=== PATIENT | male | born 1990 | race Caucasian/White ===

== ENCOUNTER 2018-03-10 15:02 | Observation (INO) | payer OTHER ==
[2018-03-10 18:33] LABS: ABS Basophils 0 10^3/ul (0-0.2); ABS Eosinophils 0.1 10^3/ul (0-0.6); ABS Lymphocytes 1.7 10^3/ul (1.0-4.8); ABS Monocytes 0.9 10^3/ul (0-0.8); ABS Neutrophils 5.4 10^3/ul (1.5-7.7); ABS Nucleated RBC 0 10^3/ul; Eosinophil % 0.7 % (0-6); Hematocrit 41 % (42-52); Hemoglobin 14.1 g/dl (14.0-18.0); Mean Corpuscular HGB Conc 35 g/dl (31-36); Mean Corpuscular Hemoglobin 30 pg (27-31); Mean Corpuscular Volume 87 fL (80-94); Mean Platelet Volume 7.7 um3 (7.4-10.4); Nucleated Red Blood Cells % 0.1; Platelet Count 275 10^3/ul (150-450); Red Blood Count 4.66 10^6/ul (4.0-5.4); Red Cell Distribution Width 13 % (10.5-15)
[2018-03-10 18:49] LABS: EGFR Non-African American 92.1 (>60)
--- NOTE | 2018-03-10 20:49 | ED ---
Lower Extremity - HPI Summary HPI Summary: Complains of left ankle pain swelling 4 days, with redness and pain 2 days. Denies trauma or insect bite, fever, N/V, history of joint pain, any other symptoms. Medical history is none. - History of Current Complaint Chief Complaint: EDSoftTissueLowExtr Stated Complaint: SWOLLEN LT ANKLE X 4 DAYS Time Seen by Provider: 03/10/18 17:33 Hx Obtained From: Patient Pain Intensity: 7 - Allergies/Home Medications Allergies/Adverse Reactions: Allergies Allergy/AdvReac Type Severity Reaction Status Date / Time No Known Allergies Allergy Verified 03/10/18 15:09 Home Medications: Home Medications NK [No Home Medications Reported] 03/10/18 [History Confirmed 03/10/18] PMH/Surg Hx/FS Hx/Imm Hx Infectious Disease History: No Infectious Disease History: Denies: Traveled Outside the [place] in Last 30 Days - Social History Alcohol Use: Occasionally Substance Use Type: Reports: None Smoking Status (MU): Never Smoked Tobacco Review of Systems Constitutional: Negative Eyes: Negative ENT: Negative Cardiovascular: Negative Respiratory: Negative Gastrointestinal: Negative Genitourinary: Negative Positive: Arthralgia Positive: Other Neurological: Negative Psychological: Normal All Other Systems Reviewed And Are Negative: Yes Physical Exam - Summary Physical Exam Summary: Full range of motion with dorsiflexion and plantar flexion of left ankle without indication of pain. Redness and swelling over medial malleolus of left ankle spreading into medial left foot and up medial left lower extremity. Tenderness to palpation right over medial malleolus. Triage Information Reviewed: Yes Vital Signs On Initial Exam: Initial Vitals Temp Pulse Resp BP Pulse Ox 99.1 F 80 16 144/90 98 03/10/18 15:10 03/10/18 15:10 03/10/18 15:10 03/10/18 15:10 03/10/18 15:10 Vital Signs Reviewed: Yes Appearance: Positive: Well-Appearing Skin: Positive: Warm Head/Face: Positive: Normal Head/Face Inspection Eyes: Positive: Normal ENT: Positive: Normal ENT inspection Respiratory/Lung Sounds: Positive: Clear to Auscultation Cardiovascular: Positive: Normal Abdomen Description: Positive: Nontender Musculoskeletal: Positive: Normal Neurological: Positive: Normal Psychiatric: Positive: Normal AVPU Assessment: Alert - [place] Coma Scale Best Eye Response: 4 - Spontaneous Best Motor Response: 6 - Obeys Commands Best Verbal Response: 5 - Oriented Coma Scale Total: 15 Diagnostics - Vital Signs Vital Signs Temp Pulse Resp BP Pulse Ox 03/10/18 15:10 99.1 F 80 16 144/90 98 - Laboratory Lab Results: Lab Results 03/10/18 03/10/18 03/10/18 Range/Units 18:24 18:24 18:24 WBC 8.0 (3.5-10.8) 10^3/ul RBC 4.66 (4.0-5.4) 10^6/ul Hgb 14.1 (14.0-18.0) g/dl Hct 41 L (42-52) % MCV 87 (80-94) fL MCH 30 (27-31) pg MCHC 35 (31-36) g/dl RDW 13 (10.5-15) % Plt Count 275 (150-450) 10^3/ul MPV 7.7 (7.4-10.4) um3 Neut % (Auto) 66.9 (38-83) % Lymph % (Auto) 21.0 L (25-47) % [place] % (Auto) 11.0 H (0-7) % Eos % (Auto) 0.7 (0-6) % Baso % (Auto) 0.4 (0-2) % Absolute Neuts (auto) 5.4 (1.5-7.7) 10^3/ul Absolute Lymphs (auto) 1.7 (1.0-4.8) 10^3/ul Absolute Monos (auto) 0.9 H (0-0.8) 10^3/ul Absolute Eos (auto) 0.1 (0-0.6) 10^3/ul Absolute Basos (auto) 0 (0-0.2) 10^3/ul Absolute Nucleated RBC 0 10^3/ul Nucleated RBC % 0.1 ESR 40 H (0-14) mm/Hr Sodium 139 (139-145) mmol/L Potassium 3.9 (3.5-5.0) mmol/L Chloride 101 (101-111) mmol/L Carbon Dioxide 28 (22-32) mmol/L Anion Gap 10 (2-11) mmol/L BUN 8 (6-24) mg/dL Creatinine 0.99 (0.67-1.17) mg/dL Est GFR ( Amer) 118.5 (>60) Est GFR (Non-Af Amer) 92.1 (>60) BUN/Creatinine Ratio 8.1 (8-20) Glucose 94 (70-100) mg/dL Lactic Acid 0.7 (0.5-2.0) mmol/L Calcium 9.4 (8.6-10.3) mg/dL Total Bilirubin 0.60 (0.2-1.0) mg/dL AST 20 (13-39) U/L ALT 15 (7-52) U/L Alkaline Phosphatase 76 (34-104) U/L C-Reactive Protein 71.50 H (< 5.00) mg/L Total Protein 7.8 (6.4-8.9) g/dL Albumin 4.6 (3.2-5.2) g/dL Globulin 3.2 (2-4) g/dL Albumin/Globulin Ratio 1.4 (1-3) Result Diagrams: 03/10/18 18:24 03/10/18 18:24 Lab Statement: Any lab studies that have been ordered have been reviewed, and results considered in the medical decision making process. Lower Extremity Course/Dx - Course Course Of Treatment: Cellulitis versus septic joint over the left medial malleolus. Denies trauma. Discussed patient with Dr. Montaño. We'll admit - Diagnoses Provider Diagnoses: Left ankle pain, Cellulitis - Physician Notifications Discussed Care Of Patient With: David Montaño Time Discussed With Above Provider: 20:54 Discharge - Sign-Out/Discharge Documenting (check all that apply): Discharge/Admit/Transfer - Discharge Plan Condition: Stable Disposition: ADMITTED TO [facility] Referrals: No Primary Care Phys,NOPCP [Primary Care Provider] - - Billing Disposition and Condition Condition: STABLE Disposition: [facility] [place]
[2018-03-10] MEDS ORDERED: ceFAZolin 1 GM in Dextrose (*) 1 GM/50 ML BAG IVPB STA (21:30)
[2018-03-10] MEDS ORDERED: Naproxen TAB* 250 MG PO PRN (21:30)
[2018-03-10] MEDS ORDERED: traMADol TAB* 50 MG PO PRN (21:30)
[2018-03-10] MEDS ORDERED: NS 0.9% 1000 ML* 1,000 ML IV SCH (21:30)
[2018-03-10] MEDS ORDERED: ceFAZolin 1 GM VIAL(*) 1 GM in NS 0.9% 50 ML* 50 ML IVPB SCH (22:00)
--- NOTE | 2018-03-10 22:10 | RAD ---
INDICATION: Left ankle pain and swelling x4 days COMPARISON: None. TECHNIQUE: 3 views of the left ankle were obtained. FINDINGS: There is soft tissue swelling overlying the fibular malleolus. The well corticated bones exhibit normal alignment. Joint spaces appear maintained. No fracture is seen. IMPRESSION: SOFT TISSUE SWELLING OVERLYING THE FIBULAR MALLEOLUS AND LATERAL LEFT HINDFOOT WITHOUT UNDERLYING FRACTURE OR DISLOCATION IDENTIFIED. If the patient's symptoms persist, follow-up imaging is recommended.
--- NOTE | 2018-03-10 23:35 | HP ---
ADMISSION HISTORY AND PHYSICAL: DATE OF ADMISSION: 03/10/18 PRIMARY CARE PROVIDER: None. HEALTHCARE PROXY: His parents. CODE STATUS: Full. SOURCE OF INFORMATION: History obtained from interview with the patient and ED provider. RELIABILITY: Excellent. CHIEF COMPLAINT: Painful left ankle. 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 He has been here approximately 2 weeks but noticed over the last 4 days, he has had increasing swelling in his left ankle, which has become extremely painful over the last 2 days. He started taking 2 tabs of Advil approximately every 4 to 6 hours for the last 2 days. He notes the pain is worse with standing and feels like the blood is pumping in his foot. He notes no known trauma. There has been no skin breakdown. No bug bites to his ankle. He has been working in shifts with his team and is only sleeping every other day; therefore he has taken no excursions to the outdoors or hikes. He has noted headaches and general aches predominantly in his hands and his right knee that seem to improve with sleep. He denies fevers, chills, sweating, chest pain, shortness of breath, or cough. Denies any dental work. Because of the increasing swelling and erythema over his left ankle associated with progressive and worsening pain, he presented to the emergency room for evaluation. PAST MEDICAL HISTORY: The patient believes he has been diagnosed with hypertension though never needed medications. MEDICATIONS: No medications. ALLERGIES: No known drug allergies. FAMILY HISTORY: No diabetes or hypertension. SOCIAL HISTORY: No tobacco. Has approximately 3 alcoholic drinks per week. Chews tobacco one time per week. He is a grad student from [employer] currently is in exchange at [employer] [facility] for 2 weeks. REVIEW OF SYSTEMS: As per HPI, otherwise all other systems negative. PHYSICAL EXAMINATION GENERAL: He is sitting in bed, interactive, pleasant, in no apparent distress. VITAL SIGNS: In the emergency room, blood pressure 144/90, pulse rate is 80, respiratory rate is 16, he is 98% on room air, his temperature is 99.1. LUNGS: Clear to auscultation. HEART: He has a regular rate and rhythm. No murmurs, rubs, or gallops. EXTREMITIES: Warm and well perfused without clubbing, cyanosis, or edema. SKIN: Notable for deep maroon erythema over his left medial malleolus extending out with less maroon but still quite red erythema over the dorsal aspect of his foot and streaking up his medial aspect of his lower extremity. There is swelling over the dorsal aspect of his foot and the medial malleolus. It is tender to palpation most notably over his medial malleolus. LABORATORY DATA: Reviewed notable for white blood cell count of 8, hemoglobin 14. His ESR is 40 and CRP of 71. DATA: No imaging obtained at this point. ASSESSMENT AND PLAN: This 27-year-old man with no other significant past medical history presenting with 4 days of increased swelling and pain over his left medial malleolus, concern for cellulitis and potentially osteomyelitis. 1. Cellulitis. He is certainly cellulitic. We will start on cefazolin 1 g every 8 hours, 150 cc of normal saline for 1 L; treat pain with acetaminophen and naproxen with tramadol as needed. First obtain an x-ray of the affected area, although its negative predictive value for osteomyelitis is low. If the patient has rapid improvement, may opt to not pursue additional imaging; however , high index of suspicion for underlying osteo as the predominant area of inflammation is right over his medial malleolus, and there is not much soft tissue the infection and the underlying bony structures. Of note, the patient has a flight on Monday, which I informed him he may have to cancel. He is able and willing to do so. 2. Hypertension, diet controlled, on no medications currently. 3. DVT prophylaxis: Low risk. Ambulate ad chito. [id number]/[facility] #: [id number] [facility]
[2018-03-10] MEDS: Acetaminophen TAB* 325 MG PO PRN (23:36)
[2018-03-11] MEDS: ceFAZolin 1 GM in Dextrose (*) 1 GM/50 ML BAG IVPB SCH ×2 (05:43→13:42)
[2018-03-11 08:16] LABS: ABS Basophils 0 10^3/ul (0-0.2); ABS Eosinophils 0.1 10^3/ul (0-0.6); ABS Lymphocytes 1.6 10^3/ul (1.0-4.8); ABS Monocytes 0.9 10^3/ul (0-0.8); ABS Neutrophils 3.6 10^3/ul (1.5-7.7); ABS Nucleated RBC 0 10^3/ul; Eosinophil % 1.3 % (0-6); Hematocrit 38 % (42-52); Hemoglobin 13.2 g/dl (14.0-18.0); Lymphocyte % 26.2 % (25-47); Mean Corpuscular HGB Conc 35 g/dl (31-36); Mean Corpuscular Hemoglobin 30 pg (27-31); Mean Corpuscular Volume 87 fL (80-94); Mean Platelet Volume 7.9 um3 (7.4-10.4); Nucleated Red Blood Cells % 0; Platelet Count 270 10^3/ul (150-450); Red Blood Count 4.39 10^6/ul (4.0-5.4); Red Cell Distribution Width 12 % (10.5-15); White Blood Count 6.3 10^3/ul (3.5-10.8)
[2018-03-11] MEDS: Acetaminophen TAB* 325 MG PO PRN (09:45)
--- NOTE | 2018-03-11 12:03 | DS ---
DISCHARGE SUMMARY: DATE OF ADMISSION: 03/10/18. DATE OF DISCHARGE: 03/11/18. PRIMARY CARE PROVIDER: Patient does not have a primary care physician. PRINCIPAL DIAGNOSIS: Left ankle cellulitis. NEW MEDICATION ON DISCHARGE: Keflex 500 mg q.i.d. for 7 days. 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 He noted over the past 4 to 5 days, increasing swelling and redness of his left ankle with pain. The patient states he denies any bug bites or trauma or breakdown of the skin. He denies any trauma to the area either. He had no nausea, no vomiting. Denied any fevers at home. He has been afebrile in the hospital. T-max was 99.1. He was seen in the emergency room and was referred to the hospitalist service for further evaluation. He was admitted on IV cefazolin, IV fluids, and ibuprofen. The patient states he had a good night's sleep. He states that there is minimal improvement in the redness of his right ankle. He is ambulating without issue, tolerating a diet. He is able to move his ankle joint without significant issues. I spoke with him that I think without any other comorbidities or risk factors, as he has no white count and no fever that the extent of the cellulitis can be managed by oral antibiotics on a continuous 7-day course of Keflex. I also discussed the importance of keeping his leg elevated while he is still in the laboratory. Patient is agreeable to this discharge instruction. He understands the instruction. He is going to get another dose of IV antibiotics this afternoon and will be discharged after that. Also, of note, on admission, the patient had an ankle x- ray done that showed soft tissue swelling overlying the fibula, malleolus, and lateral left hindfoot without underlying fracture or dislocation identified. His blood work showed no elevated white count. His CRP is elevated which is not unusual in the setting of his cellulitis. I discussed with the patient the importance of returning to the emergency room if his redness gets worse, swelling, pain or difficulty moving his ankle joint that he should return to the emergency room also in the setting of a fever. He is aware of these instructions and to continue full dose of antibiotics and keep the leg elevated. Patient is being discharged to home. 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 ACTIVITY: As tolerated. DIET: Regular. TIME SPENT: Greater than 30 minutes spent doing the discharge summary, more than half the time spent in direct patient contact. [id number]/[facility] #: [id number] [facility]
[2018-03-11 13:40] VITALS: BP 123/63
== END 2018-03-11 15:20 | disposition home or self-care (01) ==
LOC: ED 15:02 → SSU 21:26
PROVIDERS: ADMIT Internal Medicine; ATTEND Pediatrics
DX: L03.90 Cellulitis, unspecified (principal); M25.572 Pain in left ankle and joints of left foot; I10 Essential (primary) hypertension
CPT/HCPCS: 36415; 80053; 83036; 83605; 85025; 85652; 86140; 96365; 96366; 99284; A9270-GY; G0378; J0690